=== PATIENT | female | born 1965 | race Caucasian/White ===

== ENCOUNTER 2017-06-24 05:19 | Emergency (ER) | payer MEDICAID ==
[~2017-06-24] VITALS: Ht 160 cm; Wt 102.5 kg
[~2017-06-24 05:19] MED LIST: ADULT LOW DOSE81 MG; AMOXICILLIN 50500 M1 PO; GLUCOPHAGE1000 MG PO; GLUCOPHAGE500 MG; HYDROCORTISONE30 G9 RE; LISINOPRIL-HCT1 EACH PO; MULTIVITAMINS1 EAC7 PO; NORCO 5-325 TA1 EACH PO; PRAVASTATIN SOD20 MG; PRAVASTATIN SOD20 MG PO; PRINZIDE 10-121 EACH
[2017-06-24] MEDS ORDERED: JANUMET 50-1,01 EACH PO (05:36)
[2017-06-24 06:14] LABS: ABSOLUTE BASOPHILS 0.1 thou/uL (0.0-0.2); ABSOLUTE EOSINOPHILS 0.1 thou/uL (0.0-0.7); ABSOLUTE LYMPHOCYTES 2.6 thou/uL (0.8-5.3); ABSOLUTE MONOCYTES 0.4 thou/uL (0.0-1.2); ABSOLUTE NEUTROPHILS 9.3 thou/uL (1.6-8.1); BASOPHILS 0.7 %; EOSINOPHILS 1.1 %; HEMATOCRIT 42.2 % (37.0-47.0); MCHC 33.2 g/dL (28.0-37.0); MCV 84.5 fL (80.0-100.0); MONOCYTES 3.2 %; MPV 8.6 fl. (7.2-11.1); NUCLEATED RBCS 0 /100WBC; PLATELET COUNT* 357 thou/uL (150-400); RBC 4.99 mil/uL (4.20-5.00); RDW-CV 14.3 % (10.5-14.5); WBC 12.6 thou/uL (4.0-11.0)
[2017-06-24 06:17] LABS: CREATININE 0.7 mg/dL (0.6-1.3); POTASSIUM 4.5 mmol/L (3.5-5.1)
[2017-06-24] MEDS ORDERED: NORCO 5-325 TA1 EACH PO (07:21)
[2017-06-24 09:09] VITALS: BP 126/82
== END 2017-06-24 09:10 | disposition home or self-care (01) ==
LOC: M.ERS 05:19
PROVIDERS: Emergency Medicine
DX: S09.90XA Unspecified injury of head, initial encounter (principal); I10 Essential (primary) hypertension; Z88.1 Allergy status to other antibiotic agents; E66.9 Obesity, unspecified; F17.210 Nicotine dependence, cigarettes, uncomplicated; E11.21 Type 2 diabetes mellitus with diabetic nephropathy; Z88.5 Allergy status to narcotic agent; Z68.41 Body mass index [BMI] 40.0-44.9, adult; Z79.82 Long term (current) use of aspirin; V49.59XA Passenger injured in collision with other motor vehicles in traffic accident, initial encounter; Y93.89 Activity, other specified; Y92.488 Other paved roadways as the place of occurrence of the external cause; Y99.8 Other external cause status

== ENCOUNTER 2017-07-01 17:50 | Emergency (ER) | payer MEDICAID ==
[~2017-07-01] VITALS: Ht 160 cm; Wt 102.5 kg
[~2017-07-01 17:50] MED LIST changes: +JANUMET 50-1,01 EACH PO
[2017-07-01 18:54] LABS: ABSOLUTE BASOPHILS 0.1 thou/uL (0.0-0.2); ABSOLUTE EOSINOPHILS 0.2 thou/uL (0.0-0.7); ABSOLUTE LYMPHOCYTES 3.7 thou/uL (0.8-5.3); ABSOLUTE MONOCYTES 0.6 thou/uL (0.0-1.2); ABSOLUTE NEUTROPHILS 7.1 thou/uL (1.6-8.1); BASOPHILS 0.8 %; HEMATOCRIT 38.5 % (37.0-47.0); HEMOGLOBIN 12.8 gm/dL (12.0-15.0); LYMPHOCYTES 31.5 %; MCH 27.8 pg (26.0-34.0); MCHC 33.1 g/dL (28.0-37.0); MONOCYTES 4.7 %; NUCLEATED RBCS 0 /100WBC; PLATELET COUNT* 328 thou/uL (150-400); RBC 4.59 mil/uL (4.20-5.00); RDW-CV 13.9 % (10.5-14.5); WBC 11.7 thou/uL (4.0-11.0)
[2017-07-01 19:01] LABS: URINE BLOOD TRACE (Negative); URINE COLOR YELLOW; URINE GLUCOSE-RANDOM NEGATIVE (Negative); URINE KETONES TRACE (Negative); URINE NITRITE-REFLEX NEGATIVE (Negative); URINE PROTEIN 1+ (Negative); URINE SPECIFIC GRAVITY >= 1.030 (1.005-1.030); URINE UROBILINOGEN 0.2 E.U./dl (0.2-1.0)
[2017-07-01 19:02] LABS: ICTOTEST (BILI CONFIRMATORY) Negative (Negative); URINE BILIRUBIN 1+ (Negative); URINE CLARITY HAZY; URINE LEUKOCYTES-REFLEX 2+ (Negative)
[2017-07-01 19:05] LABS: CALCIUM 8.8 mg/dL (8.5-10.1); CREATININE 1.1 mg/dL (0.6-1.3); POTASSIUM 3.7 mmol/L (3.5-5.1)
[2017-07-01 19:09] LABS: ALBUMIN 3.3 g/dL (3.4-5.0); TOTAL BILIRUBIN 0.3 mg/dL (<0.1-1.0); TOTAL PROTEIN 7.6 g/dL (6.4-8.2)
[2017-07-01 19:14] LABS: SQUAMOUS >10 Many /LPF (0-3)
[2017-07-01 19:15] LABS: BACTERIA-REFLEX 1-9 Few /HPF (None Seen); CASTS None Seen /LPF (None Seen); CRYSTALS None Seen /LPF (None Seen); MUCUS 0-3 Light strn/LPF (None Seen); URINE RBC None Seen /HPF (0-2); URINE WBC-REFLEX >25 Many /HPF (0-5)
[2017-07-01] MEDS ORDERED: BACTRIM DS TAB1 EACH PO (19:57)
[2017-07-01 20:45] VITALS: BP 128/83
[2017-07-01] MEDS ORDERED: MACROBID 100 M100 M1 PO (20:58)
== END 2017-07-01 20:45 | disposition home or self-care (01) ==
LOC: M.ERS 17:50
PROVIDERS: Physician Assistant
DX: N39.0 Urinary tract infection, site not specified (principal); S30.1XXA Contusion of abdominal wall, initial encounter; S63.694A Other sprain of right ring finger, initial encounter; E11.40 Type 2 diabetes mellitus with diabetic neuropathy, unspecified; I10 Essential (primary) hypertension; M19.90 Unspecified osteoarthritis, unspecified site; E66.9 Obesity, unspecified; Z88.5 Allergy status to narcotic agent; Z88.2 Allergy status to sulfonamides; Z68.41 Body mass index [BMI] 40.0-44.9, adult; V57.9XXA Unspecified occupant of pick-up truck or van injured in collision with fixed or stationary object in traffic accident, initial encounter; Y93.89 Activity, other specified; Y92.89 Other specified places as the place of occurrence of the external cause; Y99.8 Other external cause status

== ENCOUNTER 2019-02-04 18:31 | Emergency (ER) | payer MEDICAID ==
[~2019-02-04] VITALS: Ht 162.6 cm; Wt 104.3 kg
[~2019-02-04 18:31] MED LIST changes: +BACTRIM DS TAB1 EACH PO; +MACROBID 100 M100 M1 PO
[2019-02-04] MEDS ORDERED: TRAZODONE 150150 M1 PO (18:42)
[2019-02-04] MEDS ORDERED: NEURONTIN 300M300 M2 PO (18:42)
[2019-02-04] MEDS ORDERED: BUSPIRONE HCL10 MG PO (18:43)
[2019-02-04] MEDS ORDERED: GLYBURIDE 5 MG T5 M1 PO (18:43)
[2019-02-04] MEDS ORDERED: BACLOFEN 10MG T10 MG PO (18:43)
[2019-02-04] MEDS ORDERED: DULOXETINE HCL30 MG PO (18:44)
[2019-02-04] MEDS ORDERED: JANUMET 50-1,01 EACH PO (18:45)
[2019-02-04] MEDS ORDERED: AMITRIPTYLINE H25 M3 PO (18:45)
[2019-02-04] MEDS ORDERED: LANTUS100 UNIT/M SUBQ (18:46)
[2019-02-04] MEDS ORDERED: TYLENOL325 MG PO (18:46)
[2019-02-04] MEDS ORDERED: ADVIL100 M2 PO (18:47)
[2019-02-04 19:03] LABS: ABSOLUTE BASOPHILS 0.1 thou/uL (0.0-0.2); ABSOLUTE EOSINOPHILS 0.3 thou/uL (0.0-0.7); ABSOLUTE LYMPHOCYTES 3.7 thou/uL (0.8-5.3); ABSOLUTE MONOCYTES 0.5 thou/uL (0.0-1.2); ABSOLUTE NEUTROPHILS 5.5 thou/uL (1.6-8.1); BASOPHILS 0.9 %; EOSINOPHILS 3.4 %; HEMATOCRIT 38.9 % (37.0-47.0); HEMOGLOBIN 12.9 gm/dL (12.0-15.0); LYMPHOCYTES 36.3 %; MCH 27.8 pg (26.0-34.0); MCHC 33.2 g/dL (28.0-37.0); MCV 83.7 fL (80.0-100.0); MONOCYTES 4.6 %; NUCLEATED RBCS 0 /100WBC; PLATELET COUNT* 319 thou/uL (150-400); POLYS 54.8 %; RBC 4.65 mil/uL (4.20-5.00); RDW-CV 14.3 % (10.5-14.5); WBC 10.1 thou/uL (4.0-11.0)
[2019-02-04 19:16] LABS: CALCIUM 8.4 mg/dL (8.5-10.1); CREATININE 0.8 mg/dL (0.6-1.3); POTASSIUM 3.9 mmol/L (3.5-5.1)
[2019-02-04 19:30] LABS: ALBUMIN 3.1 g/dL (3.4-5.0); TOTAL BILIRUBIN 0.2 mg/dL (<0.1-1.0); TOTAL PROTEIN 7.2 g/dL (6.4-8.2)
[2019-02-04] MEDS ORDERED: NORCO 5-325 TA1 EAC1 PO (19:35)
[2019-02-04] MEDS ORDERED: FLEXERIL PO (19:41)
[2019-02-04 19:47] VITALS: BP 115/84
--- NOTE | 2019-02-07 10:41 | EKG ---
[place] [address] ELECTROCARDIOGRAM REPORT Name: CARLANATE Dai Room: [facility]#: [id number] Admission: 02/04/19 Attend Phys: Discharge: 02/04/19 Date of : 69 Report #: [id number] THIS REPORT FOR: //name// [facility] ED Test Date: 2019-02-04 Test Time: 18:34:46 Pat Name: NATE AGUIRRE Department: Room: Gender: F Senior Clinical Data Analyst: MIKAL : 1965 Requested By: Kp Pierre Order Number: [id number] MD: Pilo Conley Measurements Intervals [place] Rate: 119 P: 44 CT: 151 QRS: -21 QRSD: 83 T: 66 QT: 325 QTc: 458 Interpretive Statements Sinus tachycardia Left axis deviation Consider anterior infarct Baseline wander in lead(s) I,aVL No previous ECG available for comparison Electronically Signed On 02-07-2019 10:41:13 [employer] by Pilo Conley [email or web address] <ELECTRONICALLY SIGNED> By: Pilo Conley MD, [facility] 02/07/19 1041 33 33 Pilo Conley MD, FACC /EPI
== END 2019-02-04 19:49 | disposition home or self-care (01) ==
LOC: M.ERS 18:31
PROVIDERS: Emergency Medicine
DX: M25.512 Pain in left shoulder (principal); R07.89 Other chest pain; E11.40 Type 2 diabetes mellitus with diabetic neuropathy, unspecified; I10 Essential (primary) hypertension; M19.90 Unspecified osteoarthritis, unspecified site; M79.7 Fibromyalgia; G62.9 Polyneuropathy, unspecified; E66.9 Obesity, unspecified; Z68.39 Body mass index [BMI] 39.0-39.9, adult; Z88.5 Allergy status to narcotic agent; Z88.2 Allergy status to sulfonamides; Z79.4 Long term (current) use of insulin